=== PATIENT | male | born 1985 | race Two or more races ===

== ENCOUNTER 2020-02-13 23:09 | Emergency (ER) | payer SELFPAY ==
[~2020-02-13] VITALS: Ht 185.4 cm; Wt 131.8 kg
[2020-02-13 23:22] VITALS: BP 155/87
[2020-02-14] MEDS ORDERED: DEXAMETHASONE SOD PHOS 20 MG/5 ML VIAL. IM ONE (00:30)
[2020-02-14] MEDS ORDERED: KETOROLAC 60 MG/2 ML VIAL. IM ONE (00:30)
[2020-02-14] MEDS ORDERED: HYDROcodone/APAP 7.5/325MG 1 TAB TABLET PO ONE (00:30)
[2020-02-14] MEDS ORDERED: HYDR-3164 PO (00:46)
[2020-02-14] MEDS ORDERED: COLC0.6T34 PO (00:46)
[2020-02-14] MEDS ORDERED: METH4TAB2 PO (00:46)
[2020-02-14] MEDS ORDERED: INDO50CA15 PO (00:46)
--- NOTE | 2020-02-14 00:46 | PHYS DOC ---
Past Medical History Past Medical History: Hypertension, Other Additional Past Medical Histor: GOUT Past Surgical History: No Surgical History Smoking Status: Never Smoker Alcohol Use: None General Adult EDM: Chief Complaint: ELBOW PROBLEM HPI: HPI: Patient is a 34 year old male who presents with 2-day history of right elbow pain. Patient states that today he started to develop swelling in the elbow as well. Patient denies any recent injuries. He indicates that he does have a history of gout and states that his last episode of gout was in his left elbow. Patient thinks that he has another flareup of his gout. He rates pain at an 8 out of 10 and states that is getting very painful to move the elbow now. [] Review of Systems: Review of Systems: Constitutional: Denies fever or chills. [] Respiratory: Denies cough or shortness of breath. [] Cardiovascular: Denies chest pain or edema. [] Musculoskeletal: Positive left elbow pain. [] Integument: Denies rash. [] Neurologic: Denies headache, focal weakness or sensory changes. [] Heart Score: Risk Factors: Risk Factors: DM, Current or recent (<one month) smoker, HTN, HLP, family history of CAD, obesity. Risk Scores: Score 0 - 3: 2.5% MACE over next 6 weeks - Discharge Home Score 4 - 6: 20.3% MACE over next 6 weeks - Admit for Clinical Observation Score 7 - 10: 72.7% MACE over next 6 weeks - Early Invasive Strategies Current Medications: Current Medications Medications (Trade) Dose Ordered Sig/[facility] Start Time Stop Time Status Last Admin Dose Admin Acetaminophen/ Hydrocodone Bitart (Lortab 7.5/325) 1 tab 1X ONCE 02/14/20 00:30 02/14/20 00:31 DC 02/14/20 00:35 1 TAB Dexamethasone Sodium Phosphate (Decadron) 10 mg 1X ONCE 02/14/20 00:30 02/14/20 00:31 DC 02/14/20 00:35 10 MG Ketorolac Tromethamine (Toradol Im) 60 mg 1X ONCE 02/14/20 00:30 02/14/20 00:31 DC 02/14/20 00:35 60 MG Allergies: Allergies: Allergies Coded Allergies Type Severity Reaction Last Updated Verified No Known Drug Allergies 02/13/20 No Physical Exam: PE: Constitutional: Well developed, well nourished, no acute distress, non-toxic appearance. [] Cardiovascular: Regular rate and rhythm [] Lungs & Thorax: Bilateral breath sounds clear to auscultation [] Skin: Warm, dry, no erythema, no rash. [] Extremities: Left elbow demonstrates warmth, swelling and tenderness with apparent joint effusion. [] Current Patient Data: Vital Signs: Vital Signs Date Time Temp Pulse Resp B/P (MAP) Pulse Ox O2 Delivery O2 Flow Rate FiO2 02/13/20 23:22 99.5 90 18 155/87 (109) 97 Room Air 99.5 EKG: EKG: [] Radiology/Procedures: Radiology/Procedures: [] Course & Med Decision Making: Course & Med Decision Making Pertinent Labs and Imaging studies reviewed. (See chart for details) [] Dragon Disclaimer: Dragon Disclaimer: This electronic medical record was generated, in whole or in part, using a voice recognition dictation system. Departure Departure Impression: Primary Impression: Gout Qualified Codes: M10.9 - Gout, unspecified Disposition: HOME, SELF-CARE Condition: STABLE Referrals: NO PCP (PCP) Patient Instructions: Form - Excuse from Work, School, or Physical Activity, Gout Scripts Colchicine (COLCRYS) 0.6 Mg Tablet 0.6 MG PO TID, #15 TAB Prov: IRAIDA DAY Jr. DO 02/14/20 Indomethacin (INDOMETHACIN) 50 Mg Capsule 1 CAP PO TID for arthritis for 10 Days, #30 CAP 0 Refills with food Prov: IRAIDA DAY Jr. DO 02/14/20 Hydrocodone/Apap 5-325 (NORCO 5-325 TABLET) 1 Each Tablet 1-2 EACH PO PRN Q6HRS PRN for PAIN, #15 as needed for pain Prov: IRAIDA DAY Jr. DO 02/14/20 Methylprednisolone (MEDROL) 4 Mg Tab.ds.pk 1 PKG PO UD, #1 PKG Prov: IRAIDA DAY Jr. DO 02/14/20 IRAIDA DAY Jr. DO Feb 14, 2020 00:46
== END 2020-02-14 01:08 | disposition home or self-care (01) ==
LOC: ER 23:09
DX: M10.9 Gout, unspecified (principal); I10 Essential (primary) hypertension
CPT/HCPCS: 96372; 99284; J1100; J1885

== ENCOUNTER 2020-09-21 04:06 | Emergency (ER) | payer SELFPAY ==
[~2020-09-21] VITALS: Ht 185.4 cm; Wt 131.0 kg
[~2020-09-21 04:06] MED LIST: COLC0.6T34 PO; HYDR-3164 PO; INDO50CA15 PO; METH4TAB2 PO
[2020-09-21 04:15] VITALS: BP 150/98
[2020-09-21] MEDS ORDERED: COLC0.6T45 PO (04:44)
[2020-09-21] MEDS ORDERED: INDO50CA15 PO (04:44)
--- NOTE | 2020-09-21 04:45 | ED.ADGEN ---
Past Medical History Past Medical History: Hypertension, Other Additional Past Medical Histor: GOUT Past Surgical History: No Surgical History Smoking Status: Current Some Day Smoker Alcohol Use: None General Adult EDM: Chief Complaint: UPPER EXTREMITY PAIN HPI: HPI: Patient is a 34 year old male coming in for left elbow pain since yesterday. Says the pain has not allowed him to sleep. Took 3 Aleve yesterday with some improvement but the pain is getting worse. Patient states he does have a history of gout in the same elbow that was priorly diagnosed by a joint aspiration and analysis. Patient is also had gout in his ankle. Denies any overuse or injury to his elbow. Bloody recently has been well without any fevers, cough, vomiting, diarrhea, headaches. Not have any other medical history and does not take any regularly scheduled medications Review of Systems: Review of Systems: All other systems within normal limits except for as noted in the HPI Allergies: Allergies: Allergies Coded Allergies Type Severity Reaction Last Updated Verified No Known Drug Allergies 02/13/20 No Physical Exam: PE: Constitutional: Well developed, well nourished, no acute distress, non-toxic appearance. [] HENT: Normocephalic, atraumatic, bilateral external ears normal, nose normal. [] Eyes: PERRLA, conjunctiva normal, no discharge. [] Neck: No rigidity, supple, no stridor. [] Cardiovascular: Regular rate and rhythm, brisk cap refill [] Lungs & Thorax: Non labored symmetric respirations, no tachypnea or respiratory distress [] Abdomen: Soft, nondistended. Skin: Warm, dry, no erythema, no rash. [] Back: No tenderness, no CVA tenderness. [] Extremities: No deformities, range of motion grossly intact, no lower extremity edema, joint effusion of the left elbow with slight warmth, no erythema [] Neurologic: Alert and oriented X 3, no focal deficits noted. [] Psychologic: Affect normal, judgement normal, mood normal. [] Current Patient Data: Vital Signs: Vital Signs Date Time Temp Pulse Resp B/P (MAP) Pulse Ox O2 Delivery O2 Flow Rate FiO2 09/21/20 04:15 97.2 91 18 150/98 (115) 97 Room Air 97.2 EKG: EKG: [] Heart Score: Risk Factors: Risk Factors: DM, Current or recent (<one month) smoker, HTN, HLP, family history of CAD, obesity. Risk Scores: Score 0 - 3: 2.5% MACE over next 6 weeks - Discharge Home Score 4 - 6: 20.3% MACE over next 6 weeks - Admit for Clinical Observation Score 7 - 10: 72.7% MACE over next 6 weeks - Early Invasive Strategies Radiology/Procedures: Radiology/Procedures: [] Course & Med Decision Making: Course & Med Decision Making Pertinent Labs and Imaging studies reviewed. (See chart for details) [] Dragon Disclaimer: Dragon Disclaimer: This electronic medical record was generated, in whole or in part, using a voice recognition dictation system. Departure Departure Impression: Primary Impression: Gout of left elbow Disposition: 01 DC HOME SELF CARE/HOMELESS Condition: STABLE Referrals: NO PCP (PCP) Patient Instructions: Gout Scripts Colchicine (Colchicine) 0.6 Mg Tablet 0.6 MG PO Q1HR for gout for 1 Day, #24 TAB Take 2 tablets initially, take 1 tablet 1 hour later Prov: BERNABE SANTANA MD 09/21/20 Indomethacin (INDOMETHACIN) 50 Mg Capsule 1 CAP PO TID for arthritis for 10 Days, #30 CAP 0 Refills with food Prov: BERNABE SANTANA MD 09/21/20 BERNABE SANTANA MD Sep 21, 2020 04:45
[2020-09-21] MEDS ORDERED: INDOMETHACIN 25 MG CAPSULE. PO ONE (05:00)
== END 2020-09-21 05:06 | disposition home or self-care (01) ==
LOC: ER 04:06
DX: M10.9 Gout, unspecified (principal); M25.522 Pain in left elbow; I10 Essential (primary) hypertension; Z87.891 Personal history of nicotine dependence
CPT/HCPCS: 99283

== ENCOUNTER 2020-12-10 18:35 | Emergency (ER) | payer SELFPAY ==
[~2020-12-10] VITALS: Ht 185.4 cm; Wt 136.0 kg
[~2020-12-10 18:35] MED LIST changes: +COLC0.6T45 PO
[2020-12-10 18:40] VITALS: BP 138/62
[2020-12-10] MEDS ORDERED: ACETAMINOPHEN 500 MG TABLET PO ONE (19:15)
[2020-12-10] MEDS ORDERED: PHEN26CR2 RC (19:21)
[2020-12-10] MEDS ORDERED: SENN-121 PO (19:21)
--- NOTE | 2020-12-10 19:21 | PHYS DOC ---
Past Medical History Past Medical History: Hypertension, Other Additional Past Medical Histor: GOUT Past Surgical History: No Surgical History Smoking Status: Never Smoker Alcohol Use: None General Adult EDM: Chief Complaint: RECTAL BLEED HPI: HPI: Patient is a 35 year old [f__sex] who presents with [] Review of Systems: Review of Systems: Constitutional: Denies fever or chills. [] Eyes: Denies change in visual acuity. [] HENT: Denies nasal congestion or sore throat. [] Respiratory: Denies cough or shortness of breath. [] Cardiovascular: Denies chest pain or edema. [] GI: Denies abdominal pain, nausea, vomiting, bloody stools or diarrhea. [] : Denies dysuria. [] Musculoskeletal: Denies back pain or joint pain. [] Integument: Denies rash. [] Neurologic: Denies headache, focal weakness or sensory changes. [] Endocrine: Denies polyuria or polydipsia. [] Lymphatic: Denies swollen glands. [] Psychiatric: Denies depression or anxiety. [] Heart Score: Risk Factors: Risk Factors: DM, Current or recent (<one month) smoker, HTN, HLP, family history of CAD, obesity. Risk Scores: Score 0 - 3: 2.5% MACE over next 6 weeks - Discharge Home Score 4 - 6: 20.3% MACE over next 6 weeks - Admit for Clinical Observation Score 7 - 10: 72.7% MACE over next 6 weeks - Early Invasive Strategies Allergies: Allergies: Allergies Coded Allergies Type Severity Reaction Last Updated Verified No Known Drug Allergies 02/13/20 No Physical Exam: PE: Constitutional: Well developed, well nourished, no acute distress, non-toxic appearance. [] HENT: Normocephalic, atraumatic, bilateral external ears normal, oropharynx moist, no oral exudates, nose normal. [] Eyes: PERRLA, EOMI, conjunctiva normal, no discharge. [] Neck: Normal range of motion, no tenderness, supple, no stridor. [] Cardiovascular:Heart rate regular rhythm, no murmur [] Lungs & Thorax: Bilateral breath sounds clear to auscultation [] Abdomen: Bowel sounds normal, soft, no tenderness, no masses, no pulsatile mas ses. [] Skin: Warm, dry, no erythema, no rash. [] Back: No tenderness, no CVA tenderness. [] Extremities: No tenderness, no cyanosis, no clubbing, ROM intact, no edema. [] Neurologic: Alert and oriented X 3, normal motor function, normal sensory function, no focal deficits noted. [] Psychologic: Affect normal, judgement normal, mood normal. [] Current Patient Data: Vital Signs: Vital Signs Date Time Temp Pulse Resp B/P (MAP) Pulse Ox O2 Delivery O2 Flow Rate FiO2 12/10/20 18:40 100.3 102 16 138/62 (87) 97 Room Air 100.3 EKG: EKG: [] Radiology/Procedures: Radiology/Procedures: [] Course & Med Decision Making: Course & Med Decision Making Pertinent Labs and Imaging studies reviewed. (See chart for details) [] Dragon Disclaimer: Dragon Disclaimer: This electronic medical record was generated, in whole or in part, using a voice recognition dictation system. Departure Departure Impression: Primary Impression: Rectal fissure Additional Impression: Suspected 2019 novel coronavirus infection Disposition: DC HOME SELF CARE/HOMELESS Condition: STABLE Referrals: NO PCP (PCP) Patient Instructions: Anal Fissure, Adult, [id number], Constipation, Adult, [id number], Fever, Adult, Hjzg-lg-[id number] Additional Instructions: Increase fluid hydration. Use [id number] ibuprofen and/or Tylenol for fever or pain. Use a SITZ bath solution (see package for instructions) after cleaning rectal area. You have been tested for or diagnosed with COVID-19. It is an infection caused by a new type of coronavirus. COVID-19 will cause cold-like or mild flu symptoms in most. It can cause more severe symptoms like problems breathing in some. There is no treatment for COVID-19. The body will clear the infection over time. Self-care will help to ease discomfort. Steps to Take: Self-Care Rest as needed. Healthy habits may help you feel better. Steps include: Choose healthy foods including fruits and vegetables. Drink water throughout the day. Get plenty of sleep each night. If you smoke, try to quit. It may ease breathing. Avoid alcohol. Keep Others Healthy The virus can spread to others. Droplets are released every time you sneeze or cough. The droplets can get into the mouth, nose, or eyes of people near you and lead to infection. To lower the chances of spreading COVID-19 to others: Stay at home until your doctor has said it is safe to leave. If you tested positive this will mean staying isolated until both of the following are true: At least 7 days have passed since the start of illness. You are free of fever for at least 72 hours without the use of medicine. During this time: - Avoid public areas, events, or transportation. Do not return to work or school until your doctor has said it is safe to do so. - Call ahead if you need to go to a medical center. Let them know you may have COVID-19. It will help them guide you where to go. They may also ask you to wear a facemask when you come to the office. - If you call for emergency medical services, let them know you may have COVID- 19. While at home: - Try to avoid close contact with others. Stay about 6 feet away. - If possible, spend most of your time in a separate room from others. - Use a face mask if you will be in close contact with others such as sharing a room or vehicle. - Have someone wipe down common surfaces in the home. Use household hand button splitter every day on areas like doorknobs, counters, or sinks. - Cough or sneeze into a tissue. Throw the tissue away right after use. If a tissue is not available, cough or sneeze into your elbow. - Wash your hands often. Wash them after sneezing or coughing. Use soap and water and wash for at least 20 seconds. Alcohol based hand equipment cleaner and tester can be used if soap and water is not available. - Do not prepare food for others. Avoid sharing personal items like forks, spoons, or toothbrushes. - Avoid close contact with pets while you are sick. There is no evidence of the virus passing to pets. This is a safety step until more is known about this virus. Isolation can be frustrating. Social interaction can help. Keep in touch with friends and family through phone and tech options. You can still interact with others in your home, just keep a safe distance of about 6 feet. Follow-up: Your doctors office will check in with you to see if there are any changes in your health. You may be asked to keep track of symptoms to share with them. They will also let you know when you are clear to be in public again. Problems to Look Out For: Contact your doctor if your recovery is not going as you expect. Get emergency care if you have problems such as: - Trouble breathing - Nonstop chest pain or pressure - Changes in awareness, confusion, or problems waking - Lips or face have bluish color - Worsening of symptoms If you think you have an emergency, call for emergency medical services right away. As taken from [facility] Health Scripts Sennosides/Docusate Sodium (Colace 2-in-1 Tablet) 1 Each Tablet 1 TAB PO BID, #30 TAB 0 Refills Decreased to nightly as stool becomes soft, increase back to BID if stools become hard. Take with a large glass of water. Prov: DYLON HUNTLEY DO 12/10/20 Phenyleph/Pramoxin/Glycr/W.pet (PREPARATION H CREAM) 26 Gm Cream..g. 1 ARIEL RC TID, #1 EACH Apply to rectal area Prov: DYLON HUNTLEY DO 12/10/20 DYLON HUNTLEY DO Dec 10, 2020 19:21
--- NOTE | 2020-12-12 10:18 | NUR ---
IP: Attempted to contact pt concerning COVID results. No answer, left a voicemail to return the call.
--- NOTE | 2020-12-12 10:32 | NUR ---
IP: Pt returned call and I informed him of the negative COVID test. Pt verbalized understanding. [phone]. Fax sent.
== END 2020-12-10 19:20 | disposition home or self-care (01) ==
LOC: ER 18:35
DX: K60.2 Anal fissure, unspecified (principal); Z20.822 Contact with and (suspected) exposure to COVID-19; I10 Essential (primary) hypertension
CPT/HCPCS: 99283; C9803; U0003; U0005